=== PATIENT | male | born 1965 | race Caucasian/White ===

== ENCOUNTER 2019-06-03 19:54 | Inpatient (IN) | payer BC ==
[~2019-06-03] VITALS: Ht 172.7 cm; Wt 96.5 kg
[2019-06-03 20:25] LABS: BASO # 0.1 x10^3/uL (0.0-0.2); BASO % 0 % (0-3); EOS % 0 % (0-3); HEMATOCRIT 52.4 % (39.0-53.0); HEMOGLOBIN 17.9 g/dL (13.0-17.5); LYMPH # 1.7 x10^3/uL (1.0-4.8); LYMPH % 8 % (24-48); MEAN CORPUSCULAR HEMOGLOBIN 31 pg (25-35); MEAN CORPUSCULAR HGB CONC 34 g/dL (31-37); MEAN CORPUSCULAR VOLUME 91 fL (79-100); MONO # 1.2 x10^3/uL (0.0-1.1); MONO % 6 % (0-9); NEUT # 18.2 x10^3/uL (1.8-7.7); NEUT % 86 % (31-73); PLATELET COUNT 296 x10^3/uL (140-400); RED BLOOD COUNT 5.74 x10^6/uL (4.30-5.70); RED CELL DISTRIBUTION WIDTH 13.9 % (11.5-14.5); WHITE BLOOD COUNT 21.1 x10^3/uL (4.0-11.0)
[2019-06-03] MEDS ORDERED: ONDANSETRON PF 4 MG/2 ML VIAL. IVP ONE (20:30)
[2019-06-03 20:40] LABS: PROTHROMBIN TIME PATIENT 12.5 SEC (11.7-14.0)
--- NOTE | 2019-06-03 20:43 | PHYS DOC ---
Past Medical History Past Medical History: Hypertension, Hypothyroid Past Surgical History: Cholecystectomy, Other Additional Past Surgical Histo: CYST REMOVAL ON NECK Smoking Status: Current Every Day Smoker Alcohol Use: Occasionally Adult General Chief Complaint Chief Complaint: CHEST PAIN HPI HPI Patient is a 54 year old male who comes in tonight to ER brought in by private vehicle by his girlfriend. Per pt he has had epigastric discomfort all day today and diarrhea. Around 1800 he states he thinks he "blacked out" at his desk at work because he was "awoken" by his coworkers asking if he was okay and they report that his eyes were open but he wasn't responding, he had some drool coming out of his mouth and he was incontinent of urine. Pt reports a headache. They offered to call EMS but pt chose to have his girlfriend come take him to ER so he could get himself cleaned up first. Pt denies any history of seizures or stroke. He has HTN but denies CAD. He does report that on the weekends he drinks alcohol heavily and this last weekend he drank at least half a bottle of bourbon. Pt states he has felt some nause and SOB today but currently in ER he has some mild epigastric discomfort that he describe as "gas" or "crampy" and he has a headache. Pt does report that 2 weeks ago he was diagnosed with influenza but he has mostly recovered from those symptoms. Review of Systems Review of Systems Constitutional: Denies fever or chills Eyes: Denies change in visual acuity, redness, or eye pain HENT: Denies nasal congestion or sore throat Respiratory: Reports SOB-resolved Cardiovascular: Reports epigastric discomfort. GI: Reports epigastric discomfort and nausea. : Denies dysuria or hematuria Musculoskeletal: Denies back pain or joint pain Integument: Denies rash or skin lesions Neurologic: Denies focal weakness or sensory changes. He reports headache and syncope vs seizure. All other systems were reviewed and found to be within normal limits, except as documented in this note. Current Medications Current Medications Current Medications Medications (Trade) Dose Ordered Sig/Urmila Start Time Stop Time Status Last Admin Dose Admin Ceftriaxone Sodium (Rocephin) 1 gm 1X ONCE 06/03/19 21:30 06/03/19 21:31 DC 06/03/19 22:00 1 GM Ondansetron HCl (Zofran) 4 mg 1X ONCE 06/03/19 20:30 06/03/19 20:31 DC 06/03/19 21:22 4 MG Sodium Chloride 1,000 ml @ 1,000 mls/hr 1X ONCE 06/03/19 21:30 06/03/19 22:29 06/03/19 22:01 1,000 MLS/HR Allergies Allergies Allergies Coded Allergies Type Severity Reaction Last Updated Verified No Known Drug Allergies 06/03/19 No Physical Exam Physical Exam Constitutional: Well developed, well nourished, no acute distress, non-toxic appearance. HENT: Normocephalic, atraumatic, bilateral external ears normal, oropharynx moist, no oral exudates, nose normal. Eyes: PERRLA, EOMI, conjunctiva normal, no discharge. Neck: Normal range of motion, no tenderness, supple, no stridor. Cardiovascular:Heart rate regular rhythm, no murmur Lungs & Thorax: Bilateral breath sounds clear to auscultation Abdomen: Bowel sounds normal, soft, no masses, no pulsatile masses. Epigastric region mildly tender with palpation. Skin: Warm, dry, no erythema, no rash. Pallor Back: No tenderness, no CVA tenderness. Extremities: No tenderness, no cyanosis, no clubbing, ROM intact, no edema. Neurologic: Alert and oriented X 3, normal motor function, normal sensory function, no focal deficits noted. Psychologic: Affect normal, judgement normal, mood normal. Current Patient Data Vital Signs Vital Signs Date Time Temp Pulse Resp B/P (MAP) Pulse Ox O2 Delivery O2 Flow Rate FiO2 06/03/19 21:52 107 16 136/75 (95) 95 Room Air 06/03/19 19:57 97.5 97.5 Lab Values Laboratory Tests Test 06/03/19 20:04 06/03/19 20:07 06/03/19 20:50 Lactic Acid Level 4.6 mmol/L (0.4-2.0) *H White Blood Count 21.1 x10^3/uL (4.0-11.0) H Red Blood Count 5.74 x10^6/uL (4.30-5.70) H Hemoglobin 17.9 g/dL (13.0-17.5) H Hematocrit 52.4 % (39.0-53.0) Mean Corpuscular Volume 91 fL (79-100) Mean Corpuscular Hemoglobin 31 pg (25-35) Mean Corpuscular Hemoglobin Concent 34 g/dL (31-37) Red Cell Distribution Width 13.9 % (11.5-14.5) Platelet Count 296 x10^3/uL (140-400) Neutrophils (%) (Auto) 86 % (31-73) H Lymphocytes (%) (Auto) 8 % (24-48) L Monocytes (%) (Auto) 6 % (0-9) Eosinophils (%) (Auto) 0 % (0-3) Basophils (%) (Auto) 0 % (0-3) Neutrophils # (Auto) 18.2 x10^3/uL (1.8-7.7) H Lymphocytes # (Auto) 1.7 x10^3/uL (1.0-4.8) Monocytes # (Auto) 1.2 x10^3/uL (0.0-1.1) H Eosinophils # (Auto) 0.0 x10^3/uL (0.0-0.7) Basophils # (Auto) 0.1 x10^3/uL (0.0-0.2) Segmented Neutrophils % 76 % (35-66) H Band Neutrophils % 9 % (0-9) Lymphocytes % 10 % (24-48) L Monocytes % 5 % (0-10) Toxic Granulation Slight Platelet Estimate Adequate (ADEQUATE) Prothrombin Time 12.5 SEC (11.7-14.0) Prothrombin Time INR 1.0 (0.8-1.1) Activated Partial Thromboplast Time 30 SEC (24-38) Sodium Level 139 mmol/L (136-145) Potassium Level 4.2 mmol/L (3.5-5.1) Chloride Level 102 mmol/L (98-107) Carbon Dioxide Level 26 mmol/L (21-32) Anion Gap 11 (6-14) Blood Urea Nitrogen 14 mg/dL (8-26) Creatinine 1.9 mg/dL (0.7-1.3) H Estimated GFR (Cockcroft-Gault) 37.4 BUN/Creatinine Ratio 7 (6-20) Glucose Level 139 mg/dL (70-99) H Calcium Level 9.5 mg/dL (8.5-10.1) Total Bilirubin 0.8 mg/dL (0.2-1.0) Aspartate Amino Transferase (AST) 19 U/L (15-37) Alanine Aminotransferase (ALT) 28 U/L (16-63) Alkaline Phosphatase 130 U/L (46-116) H Creatine Kinase 111 U/L (39-308) Creatine Kinase MB (Mass) 0.6 ng/mL (0.0-3.6) Creatine Kinase MB Relative Index 0.5 % (0-4) Troponin I Quantitative < 0.017 ng/mL (0.000-0.055) TM-Zox-M-Type Natriuretic Peptide 70 pg/mL (0-124) Total Protein 8.5 g/dL (6.4-8.2) H Albumin 4.3 g/dL (3.4-5.0) Albumin/Globulin Ratio 1.0 (1.0-1.7) Lipase 140 U/L (73-393) Laboratory Tests 06/03/19 20:07 Laboratory Tests 06/03/19 20:50 EKG EKG EKG: rate 103 bpm, tachycardia, no STEMI, reviewed by Dr. Lindo Radiology/Procedures Radiology/Procedures CXR: neg for acute finding Course & Med Decision Making Course & Med Decision Making I suspect that pt had a seizure with his report of what happened today and elevated lactic and WBC. He does have some epigastric pain so will trend his troponin. He has no history of seizures and possibly this is related to heavy alcohol intake over the weekend but unclear. Discussed admission to trend his troponin, as well as watch if his lactic and WBC decrease. Pt was given some IVF and Rocephin just because he met sepsis criteria but have lower suspicion for infection. Pt admitted to Dr Meyers. Pt resting comfortably. Dragon Disclaimer Dragon Disclaimer This electronic medical record was generated, in whole or in part, using a voice recognition dictation system. Departure Departure Impression: Primary Impression: Lactic acid blood increased Additional Impressions: Leukocytosis Epigastric pain Disposition: ADMITTED INPATIENT Admitting Physician: MONICA Condition: STABLE Problem Qualifiers SENG BLEDSOE Jun 03, 2019 20:43
[2019-06-03 20:47] LABS: % BANDS 9 % (0-9); % LYMPHS 10 % (24-48); % MONOS 5 % (0-10); % SEGS 76 % (35-66)
[2019-06-03 20:49] LABS: PLT ESTIMATE ADEQUATE (ADEQUATE); TOXIC GRANULATION SLIGHT
--- NOTE | 2019-06-03 21:03 | RAD ---
EXAM: AP View of the chest DATE: 06/03/2019 8:12 PM INDICATION: Chest pain, shortness of air COMPARISON: No Prior FINDINGS: The heart is not enlarged. Mediastinal and hilar contours are normal. No focal parenchymal airspace opacity. No pleural effusion or pneumothorax. IMPRESSION: 1. No radiographic evidence for acute cardiopulmonary process. Electronically signed by: Dyllan Elliott MD (06/03/2019 9:00 PM) [id number]
[2019-06-03 21:09] LABS: CALCIUM 9.5 mg/dL (8.5-10.1); CREATININE 1.9 mg/dL (0.7-1.3); GFR 37.4; POTASSIUM 4.2 mmol/L (3.5-5.1)
[2019-06-03 21:16] LABS: ALBUMIN 4.3 g/dL (3.4-5.0); TOTAL BILIRUBIN 0.8 mg/dL (0.2-1.0); TOTAL PROTEIN 8.5 g/dL (6.4-8.2)
[2019-06-03] MEDS ORDERED: IV NORMAL SALINE 1000ML BAG 1,000 ML IV ONE (21:30)
[2019-06-03] MEDS ORDERED: cefTRIAXone IV Push 1 GM VIAL. IVP ONE (21:30)
--- NOTE | 2019-06-03 21:50 | RAD ---
EXAM: CT Head without IV contrast CLINICAL HISTORY: Syncope, seizures COMPARISON: None. TECHNIQUE: Routine CT of the head without contrast. Soft tissues and bone windows were reviewed. PQRS compliance statement - One or more of the following individualized dose reduction techniques were utilized for this study: 1. Automated exposure control 2. Adjustment of the mA and/or kV according to patient size 3. Use of iterative reconstruction technique FINDINGS: There is no evidence of hemorrhage, mass or extra-axial fluid collection. Lucency left basal ganglia, likely lacunar infarct or prominent perivascular space. Garcia-white differentiation is maintained with no evidence of edema. There is no mass effect or shift of the intracranial structures. The ventricles, basilar cisterns and cortical sulci are normal in size and configuration for the patients stated age. The cerebellum and brainstem are unremarkable. The calvarium demonstrates no evidence of fracture or focal lesion. Diffuse opacification right maxillary sinus and left maxillary sinus thickening partially profiled. Otherwise paranasal sinuses and mastoid air cells are grossly clear. IMPRESSION: 1. No evidence for acute intracranial process. 2. Maxillary sinus opacification, likely sinusitis. Electronically signed by: Dyllan Elliott MD (06/03/2019 9:46 PM) [id number]
[2019-06-03] MEDS ORDERED: ONDANSETRON PF 4 MG/2 ML VIAL. IV PRN (22:30)
[2019-06-04] VITALS (7 sets, daily range): BP systolic 120–145; BP diastolic 64–93
[2019-06-04 02:55] LABS: BASO % 0 % (0-3); EOS % 0 % (0-3); HEMATOCRIT 44.5 % (39.0-53.0); HEMOGLOBIN 15.1 g/dL (13.0-17.5); LYMPH % 17 % (24-48); MEAN CORPUSCULAR HEMOGLOBIN 31 pg (25-35); MEAN CORPUSCULAR HGB CONC 34 g/dL (31-37); MEAN CORPUSCULAR VOLUME 91 fL (79-100); MONO # 0.5 x10^3/uL (0.0-1.1); MONO % 5 % (0-9); NEUT # 9.3 x10^3/uL (1.8-7.7); NEUT % 78 % (31-73); PLATELET COUNT 218 x10^3/uL (140-400); RED BLOOD COUNT 4.88 x10^6/uL (4.30-5.70); RED CELL DISTRIBUTION WIDTH 13.9 % (11.5-14.5); WHITE BLOOD COUNT 11.9 x10^3/uL (4.0-11.0)
[2019-06-04 03:09] LABS: ALBUMIN 3.5 g/dL (3.4-5.0); CALCIUM 8.4 mg/dL (8.5-10.1); CREATININE 1.7 mg/dL (0.7-1.3); GFR 42.5; POTASSIUM 4.8 mmol/L (3.5-5.1); TOTAL BILIRUBIN 0.4 mg/dL (0.2-1.0); TOTAL PROTEIN 7.1 g/dL (6.4-8.2)
--- NOTE | 2019-06-04 04:26 | EKG ---
[facility] [address] [place] [address] Test Date: 2019-06-03 Test Time: 19:59:38 Pat Name: BENNY CARABALLO Department: Room: Gender: M [employer] Director: : 1965 Requested By: SENG BLEDSOE Order Number: [id number] Reading MD: Measurements Intervals [place] Rate: 103 P: 158 IA: 138 QRS: 125 QRSD: 92 T: 131 QT: 306 QTc: 403 Interpretive Statements SUPRAVENTRICULAR RHYTHM ABNORMAL RIGHT AXIS DEVIATION LEFT POSTERIOR FASCICULAR BLOCK T ABNORMALITY IN HIGH LATERAL LEADS ABNORMAL ECG RI6.01 No previous ECG available for comparison
[2019-06-04] MEDS ORDERED: LEVO175T5 PO (04:58)
[2019-06-04] MEDS ORDERED: LISI1TAB19 PO (04:58)
[2019-06-04] MEDS ORDERED: ACET-1871 PO (09:43)
[2019-06-04] MEDS ORDERED: ACETAMINOPHEN 325 MG TABLET. PO PRN (09:45)
[2019-06-04] MEDS: hydroCHLOROthiazide 12.5 MG CAPSULE PO SCH (10:00)
[2019-06-04] MEDS: LISINOPRIL 20 MG TABLET PO SCH (11:00)
[2019-06-04] MEDS: LEVOTHYROXINE 175 MCG TABLET PO SCH (11:00)
--- NOTE | 2019-06-04 11:46 | SSS ---
ADMIT DATE: 06/04/2019 CHIEF COMPLAINT: Chest pain and possible seizure. HISTORY OF PRESENT ILLNESS: The patient is a pleasant 54-year-old male who was drinking over the weekend and was brought to the ER because of chest pain. His girlfriend brought him in. Apparently at 6:00 last night, he blacked out, but thought it might have been a seizure. Rated his symptoms at 6/10. He has associated weakness. He was admitted overnight for observation. This morning, he is being examined on the medical floor. He wants to go home. We are going to have Neurology look at him before he goes. PAST MEDICAL HISTORY: Probable alcohol issues, hypertension, hypothyroidism, chronic renal insufficiency, cholecystectomy, noncompliance, tobacco abuse. ALLERGIES: None. FAMILY HISTORY: Coronary artery disease. SOCIAL HISTORY: He smokes and drinks. No drugs. MEDICATIONS: Reviewed, please refer to the MRAD. REVIEW OF SYSTEMS: GENERAL: No history of weight change, weakness or fevers. SKIN: No bruising, hair changes or rashes. EYES: No blurred, double or loss of vision. NOSE AND THROAT: No history of nosebleeds, hoarseness or sore throat. HEART: No history of palpitations, chest pain or shortness of breath on exertion. LUNGS: Denies cough, hemoptysis, wheezing or shortness of breath. GASTROINTESTINAL: Denies changes in appetite, nausea, vomiting, diarrhea or constipation. GENITOURINARY: No history of frequency, urgency, hesitancy or nocturia. NEUROLOGIC: Denies history of numbness, tingling, tremor or weakness. PSYCHIATRIC: No history of panic, anxiety or depression. ENDOCRINE: No history of heat or cold intolerance, polyuria or polydipsia. EXTREMITIES: Denies muscle weakness, joint pain, pain on walking or stiffness. PHYSICAL EXAMINATION: VITALS: Within normal limits and are stable. GENERAL: No apparent distress. Alert and oriented. HEENT: Normal cephalic atraumatic, external auditory canals are patent. Eyes: Extraocular muscles are intact, pupils are equally round and reactive to light and accommodation. MUSKULOSKELETAL: Well developed, well nourished, good range of motion. ENDOCRINE: No thyromegaly was palpated. LYMPHATICS: No cervical chain or axillary nodes were noted. HEMATOPOIETIC: No bruising. NECK: Supple, no JVD, no thyromegaly was noted. LUNGS: Clear to auscultation in all lung reynolds without rhonchi or wheezing. HEART: RRR, S1, S2 present. Peripheral pulses intact, no obvious murmurs were noted. ABDOMEN: Soft, nontender. Positive bowel sounds no organomegaly, normal bowel sounds. EXTREMITIES: Without any cyanosis, clubbing, or edema. Pedal pulses intact, Homans sign is negative. NEUROLOGIC: Normal speech, normal tone. A & O x 3, moves all extremities, no obvious focal deficits. PSYCHIATRIC: Normal affect, normal mood. Stable. SKIN: No ulcerations or rashes, good skin turgor, no jaundice. VASCULAR: Good capillary refill, neurovascular bundle appears to be intact. LABORATORY DATA: Troponin is 0. White count was 21 last night, but it went down to 11.9 this morning. ASSESSMENT AND PLAN: Atypical chest pain. The patient looks great for discharge. We will go ahead and have Neurology look at him regarding the possibility of a seizure before he goes. DISPOSITION: Home. ACTIVITY: As tolerated. DIET: Low sodium. MEDICATIONS: Please see MRAD. I did give him a prescription for empiric Augmentin 875 p.o. b.i.d. since he had a slight leukocytosis. TOTAL TIME: 32 minutes. ANITA LARA DO DR: RYNE/albert JOB#: [id number] / [id number]
--- NOTE | 2019-06-04 14:06 | NUR ---
SS following for discharge planning. SS reviewed pt chart. Pt is from home and is currently on room air. Discharge order on the chart for home with self care.
[2019-06-04 14:16] LABS: BARBITURATES NEG (NEG); BENZODIAZEPINES NEG (NEG); CANNABINOIDS NEG (NEG); COCAINE NEG (NEG); METHADONE NEG (NEG); OPIATES NEG (NEG); PHENCYCLIDINE NEG (NEG)
[2019-06-04 14:21] LABS: AMPHETAMINE/METHAMPHETAMINE NEG (NEG)
[2019-06-04] MEDS ORDERED: LOPERAMIDE 2 MG CAPSULE PO PRN (15:00)
--- NOTE | 2019-06-04 16:36 | PDOC2 ---
NEUROLOGY CONSULT Date of Admission Date of Admission DATE: 06/04/19 TIME: 16:16 Reason for Consult Reason for Consult: IMPRESSION: Seizure x 1 on 06/03/19, ETOH related likely. Seizure or seizure like episodes x 5 in the past. Chest pain. Dizziness. Leukocytosis. HTN. Hypothyroidism. AKD. Sinusitis. Alcohol use/abuse. RECOMMENDATIONS/PLAN: Vit B1 100 mg daily. EEG. Lab: see orders. Keppra 500 mg bid after EEG. Brain MRI w/wo contrast plus seizure protocol as out-patient base. Patient education for alcohol abstinence. No driving x 6 months anytime after a seizure or seizure like episode. HISTORY OF THE PRESENT ILLNESS: This is a 54-year-old male who presented to the ER brought by private vehicle by his girlfriend. Per pt he has had epigastric discomfort all day and diarrhea. Around 18:00 he states he thinks he "blacked out" at his desk at work because he was "awoken" by his coworkers asking if he was okay and they report that his eyes were open but he wasn't responding, he had some drool coming out of his mouth and he was incontinent of urine. He states he felt dizziness and sweating before episode. Pt reports a headache. They offered to call EMS but pt chose to have his girlfriend come take him to ER so he could get himself cleaned up first. He said he had about 4-5 similar episodes in the past. He drinks about 350 ml of 80% approved alcohol on Monday and less on Monday for about 20 yea rs, but not drink on weekdays. PAST MEDICAL HISTORY: Hypertension, Hypothyroid. PAST SURGERY HISTORY: Cholecystectomy, CYST REMOVAL ON NECK ALLERGY: NKDA MEDICATIONS: Refer to [facility] HISTORY: Non contributory. SOCIAL HISTORY: Lives at home. Denies illicit drug use. He smokes. He drinks about 350 ml 80% approved alcohol on weekend for about 20 years. Stating no drink on weekdays. REVIEW OF SYSTEMS: Constitutional: Over weight. Head: No recent traumatic brain or head injury. Skin: No edema, or rash. Ear: No infection, tinnitus. Eyes: No vision loss or color blindness. Nose: No bleeding or purulent discharges. Hearing: Mild hearing decrease. Neck: No injury. Cardiac: Chest pain, HTN, HLD. Pulmonary: Smoking. GI: No GI ulcer, GI bleeding. Urinary/genital: No dysuria, incontinence, urinary retention. Endocrinologic: Hypothyroidism, obesity. Skeletomuscular: No muscular atrophy. Neurological: see HP. Psychiatric: Denies drug use/abuse. Otherwise, not [id number] review of systems. PHYSICAL EXAMINATION: General appearance is in subacute distress. HEENT: Normocephalic and nontraumatic. Eyes, nose, ears, and throat are unremarkable. Neck is supple. No lymphadenopathy. No crepitus. Cardiovascular: S1, S2, regular rate and rhythm. Pulmonary: Clear to auscultation bilaterally. Abdomen: Bowel sounds are positive. Extremities: No rash, lesions, or edema. No restriction of range of motion NEUROLOGICAL EXAMINATION: Alert Oriented to time, place and person. PERRL. EOMI. CN: no focal findings. Muscle tone: within normal. Muscle strength: 5 DTR: 2 Plantar reflex: Flexor response bilaterally Gait: not examined in bed. Sensory exam: no abnormal findings. No cerebellar signs elicited. F-T-N test fine. Current Medications Current Medications Current Medications Ondansetron HCl (Zofran) 4 mg 1X ONCE IVP Last administered on 06/03/19at 21:22; Start 06/03/19 at 20:30; Stop 06/03/19 at 20:31; Status DC Ceftriaxone Sodium (Rocephin) 1 gm 1X ONCE IVP Last administered on 06/03/19at 22:00; Start 06/03/19 at 21:30; Stop 06/03/19 at 21:31; Status DC Sodium Chloride 1,000 ml @ 1,000 mls/hr 1X ONCE IV Last administered on 06/03/19at 22:01; Start 06/03/19 at 21:30; Stop 06/03/19 at 22:29; Status DC Ondansetron HCl (Zofran) 4 mg PRN Q8HRS PRN IV NAUSEA/VOMITING; Start 06/03/19 at 22:30; Stop 06/04/19 at 22:29 Lorazepam (Ativan Inj) 1 mg PRN Q4HRS PRN IVP ANXIETY / AGITATION; Start at 23:00 Levothyroxine Sodium (Synthroid) 175 mcg DAILY06 PO ; Start 06/04/19 at 11:00 Lisinopril (Prinivil) 20 mg DAILY PO ; Start 06/04/19 at 11:00 Hydrochlorothiazide (Microzide) 12.5 mg DAILY PO ; Start 06/04/19 at 10:00 Acetaminophen (Tylenol) 650 mg PRN Q6HRS PRN PO HEADACHE; Start 06/04/19 at 09:45 Loperamide HCl (Imodium) 2 mg PRN Q15MIN PRN PO DIARRHEA Last administered on 06/04/19at 14:59; Start 06/04/19 at 15:00 Active Scripts Active Reported Lisinopril-Hctz 20-12.5 Mg Tab (Lisinopril/Hydrochlorothiazide) 1 Each Tablet 1 Tab PO DAILY Levothyroxine Sodium 175 Mcg Tablet 1 Tab PO DAILY Allergies Allergies: Allergies Coded Allergies Type Severity Reaction Last Updated Verified No Known Drug Allergies 06/03/19 No ROS Review of System The patient denies any associated fevers, chills, headache, ear pain, rhinorrhea, sore throat, stiff neck, productive cough, chest pain, shortness of breath, back or flank pain, abdominal pain, nausea, vomiting, diarrhea, constipation, dysuria, rash, numbness, weakness, tingling, incontinence, difficulty ambulating, or diaphoresis. Physical Exam Physical Exam General: Well developed, well nourished, no acute distress, well appearing HEENT: Pupils equally round and reactive to light, EOMI, no discharge, normal conjunctiva Neck: Supple, no nuchal rigidity, no JVD, trachea midline, no tenderness Cardiac: RRR, no murmurs, no gallops, no rubs Chest/Lungs: CTAB, no wheeze, no rhonchi, no crackles Abdomen: soft, non-distended, no guarding, no peritoneal signs, non-tender Back: No tenderness Extremities: no edema, pulses intact, non-tender,capillary refill <3 sec bilateral upper and lower extremities, Neuro: Alert and oriented x 4, no focal deficits, normal speech Vitals Vitals: Vital Signs Date Time Temp Pulse Resp B/P (MAP) Pulse Ox O2 Delivery O2 Flow Rate FiO2 06/04/19 15:00 98.4 94 18 140/85 (103) 97 Room Air 98.4 Labs Labs Laboratory Tests Test 06/03/19 20:04 06/03/19 20:07 06/03/19 20:50 06/03/19 23:55 Lactic Acid Level 4.6 mmol/L (0.4-2.0) 2.0 mmol/L (0.4-2.0) White Blood Count 21.1 x10^3/uL (4.0-11.0) Red Blood Count 5.74 x10^6/uL (4.30-5.70) Hemoglobin 17.9 g/dL (13.0-17.5) Hematocrit 52.4 % (39.0-53.0) Mean Corpuscular Volume 91 fL (79-100) Mean Corpuscular Hemoglobin 31 pg (25-35) Mean Corpuscular Hemoglobin Concent 34 g/dL (31-37) Red Cell Distribution Width 13.9 % (11.5-14.5) Platelet Count 296 x10^3/uL (140-400) Neutrophils (%) (Auto) 86 % (31-73) Lymphocytes (%) (Auto) 8 % (24-48) Monocytes (%) (Auto) 6 % (0-9) Eosinophils (%) (Auto) 0 % (0-3) Basophils (%) (Auto) 0 % (0-3) Neutrophils # (Auto) 18.2 x10^3/uL (1.8-7.7) Lymphocytes # (Auto) 1.7 x10^3/uL (1.0-4.8) Monocytes # (Auto) 1.2 x10^3/uL (0.0-1.1) Eosinophils # (Auto) 0.0 x10^3/uL (0.0-0.7) Basophils # (Auto) 0.1 x10^3/uL (0.0-0.2) Segmented Neutrophils % 76 % (35-66) Band Neutrophils % 9 % (0-9) Lymphocytes % 10 % (24-48) Monocytes % 5 % (0-10) Toxic Granulation Slight Platelet Estimate Adequate (ADEQUATE) Prothrombin Time 12.5 SEC (11.7-14.0) Prothromb Time International Ratio 1.0 (0.8-1.1) Activated Partial Thromboplast Time 30 SEC (24-38) Sodium Level 139 mmol/L (136-145) Potassium Level 4.2 mmol/L (3.5-5.1) Chloride Level 102 mmol/L (98-107) Carbon Dioxide Level 26 mmol/L (21-32) Anion Gap 11 (6-14) Blood Urea Nitrogen 14 mg/dL (8-26) Creatinine 1.9 mg/dL (0.7-1.3) Estimated GFR (Cockcroft-Gault) 37.4 BUN/Creatinine Ratio 7 (6-20) Glucose Level 139 mg/dL (70-99) Calcium Level 9.5 mg/dL (8.5-10.1) Total Bilirubin 0.8 mg/dL (0.2-1.0) Aspartate Amino Transf (AST/SGOT) 19 U/L (15-37) Alanine Aminotransferase (ALT/SGPT) 28 U/L (16-63) Alkaline Phosphatase 130 U/L (46-116) Creatine Kinase 111 U/L (39-308) Creatine Kinase MB (Mass) 0.6 ng/mL (0.0-3.6) Creatine Kinase MB Relative Index 0.5 % (0-4) Troponin I Quantitative < 0.017 ng/mL (0.000-0.055) YO-Gky-H-Type Natriuretic Peptide 70 pg/mL (0-124) Total Protein 8.5 g/dL (6.4-8.2) Albumin 4.3 g/dL (3.4-5.0) Albumin/Globulin Ratio 1.0 (1.0-1.7) Lipase 140 U/L (73-393) Test 06/04/19 01:22 06/04/19 13:50 White Blood Count 11.9 x10^3/uL (4.0-11.0) Red Blood Count 4.88 x10^6/uL (4.30-5.70) Hemoglobin 15.1 g/dL (13.0-17.5) Hematocrit 44.5 % (39.0-53.0) Mean Corpuscular Volume 91 fL (79-100) Mean Corpuscular Hemoglobin 31 pg (25-35) Mean Corpuscular Hemoglobin Concent 34 g/dL (31-37) Red Cell Distribution Width 13.9 % (11.5-14.5) Platelet Count 218 x10^3/uL (140-400) Neutrophils (%) (Auto) 78 % (31-73) Lymphocytes (%) (Auto) 17 % (24-48) Monocytes (%) (Auto) 5 % (0-9) Eosinophils (%) (Auto) 0 % (0-3) Basophils (%) (Auto) 0 % (0-3) Neutrophils # (Auto) 9.3 x10^3/uL (1.8-7.7) Lymphocytes # (Auto) 2.0 x10^3/uL (1.0-4.8) Monocytes # (Auto) 0.5 x10^3/uL (0.0-1.1) Eosinophils # (Auto) 0.0 x10^3/uL (0.0-0.7) Basophils # (Auto) 0.0 x10^3/uL (0.0-0.2) Sodium Level 140 mmol/L (136-145) Potassium Level 4.8 mmol/L (3.5-5.1) Chloride Level 107 mmol/L (98-107) Carbon Dioxide Level 22 mmol/L (21-32) Anion Gap 11 (6-14) Blood Urea Nitrogen 16 mg/dL (8-26) Creatinine 1.7 mg/dL (0.7-1.3) Estimated GFR (Cockcroft-Gault) 42.5 BUN/Creatinine Ratio 9 (6-20) Glucose Level 115 mg/dL (70-99) Calcium Level 8.4 mg/dL (8.5-10.1) Total Bilirubin 0.4 mg/dL (0.2-1.0) Aspartate Amino Transf (AST/SGOT) 16 U/L (15-37) Alanine Aminotransferase (ALT/SGPT) 25 U/L (16-63) Alkaline Phosphatase 106 U/L (46-116) Troponin I Quantitative < 0.017 ng/mL (0.000-0.055) Total Protein 7.1 g/dL (6.4-8.2) Albumin 3.5 g/dL (3.4-5.0) Albumin/Globulin Ratio 1.0 (1.0-1.7) Vitamin B12 Level 306 pg/mL (247-911) Thyroid Stimulating Hormone (TSH) 2.839 uIU/mL (0.358-3.74) Urine Opiates Screen Neg (NEG) Urine Methadone Screen Neg (NEG) Urine Barbiturates Neg (NEG) Urine Phencyclidine Screen Neg (NEG) Urine Amphetamine/Methamphetamine Neg (NEG) Urine Benzodiazepines Screen Neg (NEG) Urine Cocaine Screen Neg (NEG) Urine Cannabinoids Screen Neg (NEG) Urine Ethyl Alcohol Neg (NEG) Laboratory Tests Test 06/03/19 20:04 06/03/19 20:07 06/03/19 20:50 06/03/19 23:55 Lactic Acid Level 4.6 mmol/L (0.4-2.0) 2.0 mmol/L (0.4-2.0) White Blood Count 21.1 x10^3/uL (4.0-11.0) Red Blood Count 5.74 x10^6/uL (4.30-5.70) Hemoglobin 17.9 g/dL (13.0-17.5) Hematocrit 52.4 % (39.0-53.0) Mean Corpuscular Volume 91 fL (79-100) Mean Corpuscular Hemoglobin 31 pg (25-35) Mean Corpuscular Hemoglobin Concent 34 g/dL (31-37) Red Cell Distribution Width 13.9 % (11.5-14.5) Platelet Count 296 x10^3/uL (140-400) Neutrophils (%) (Auto) 86 % (31-73) Lymphocytes (%) (Auto) 8 % (24-48) Monocytes (%) (Auto) 6 % (0-9) Eosinophils (%) (Auto) 0 % (0-3) Basophils (%) (Auto) 0 % (0-3) Neutrophils # (Auto) 18.2 x10^3/uL (1.8-7.7) Lymphocytes # (Auto) 1.7 x10^3/uL (1.0-4.8) Monocytes # (Auto) 1.2 x10^3/uL (0.0-1.1) Eosinophils # (Auto) 0.0 x10^3/uL (0.0-0.7) Basophils # (Auto) 0.1 x10^3/uL (0.0-0.2) Segmented Neutrophils % 76 % (35-66) Band Neutrophils % 9 % (0-9) Lymphocytes % 10 % (24-48) Monocytes % 5 % (0-10) Toxic Granulation Slight Platelet Estimate Adequate (ADEQUATE) Prothrombin Time 12.5 SEC (11.7-14.0) Prothromb Time International Ratio 1.0 (0.8-1.1) Activated Partial Thromboplast Time 30 SEC (24-38) Sodium Level 139 mmol/L (136-145) Potassium Level 4.2 mmol/L (3.5-5.1) Chloride Level 102 mmol/L (98-107) Carbon Dioxide Level 26 mmol/L (21-32) Anion Gap 11 (6-14) Blood Urea Nitrogen 14 mg/dL (8-26) Creatinine 1.9 mg/dL (0.7-1.3) Estimated GFR (Cockcroft-Gault) 37.4 BUN/Creatinine Ratio 7 (6-20) Glucose Level 139 mg/dL (70-99) Calcium Level 9.5 mg/dL (8.5-10.1) Total Bilirubin 0.8 mg/dL (0.2-1.0) Aspartate Amino Transf (AST/SGOT) 19 U/L (15-37) Alanine Aminotransferase (ALT/SGPT) 28 U/L (16-63) Alkaline Phosphatase 130 U/L (46-116) Creatine Kinase 111 U/L (39-308) Creatine Kinase MB (Mass) 0.6 ng/mL (0.0-3.6) Creatine Kinase MB Relative Index 0.5 % (0-4) Troponin I Quantitative < 0.017 ng/mL (0.000-0.055) EU-Ofv-G-Type Natriuretic Peptide 70 pg/mL (0-124) Total Protein 8.5 g/dL (6.4-8.2) Albumin 4.3 g/dL (3.4-5.0) Albumin/Globulin Ratio 1.0 (1.0-1.7) Lipase 140 U/L (73-393) Test 06/04/19 01:22 06/04/19 13:50 White Blood Count 11.9 x10^3/uL (4.0-11.0) Red Blood Count 4.88 x10^6/uL (4.30-5.70) Hemoglobin 15.1 g/dL (13.0-17.5) Hematocrit 44.5 % (39.0-53.0) Mean Corpuscular Volume 91 fL (79-100) Mean Corpuscular Hemoglobin 31 pg (25-35) Mean Corpuscular Hemoglobin Concent 34 g/dL (31-37) Red Cell Distribution Width 13.9 % (11.5-14.5) Platelet Count 218 x10^3/uL (140-400) Neutrophils (%) (Auto) 78 % (31-73) Lymphocytes (%) (Auto) 17 % (24-48) Monocytes (%) (Auto) 5 % (0-9) Eosinophils (%) (Auto) 0 % (0-3) Basophils (%) (Auto) 0 % (0-3) Neutrophils # (Auto) 9.3 x10^3/uL (1.8-7.7) Lymphocytes # (Auto) 2.0 x10^3/uL (1.0-4.8) Monocytes # (Auto) 0.5 x10^3/uL (0.0-1.1) Eosinophils # (Auto) 0.0 x10^3/uL (0.0-0.7) Basophils # (Auto) 0.0 x10^3/uL (0.0-0.2) Sodium Level 140 mmol/L (136-145) Potassium Level 4.8 mmol/L (3.5-5.1) Chloride Level 107 mmol/L (98-107) Carbon Dioxide Level 22 mmol/L (21-32) Anion Gap 11 (6-14) Blood Urea Nitrogen 16 mg/dL (8-26) Creatinine 1.7 mg/dL (0.7-1.3) Estimated GFR (Cockcroft-Gault) 42.5 BUN/Creatinine Ratio 9 (6-20) Glucose Level 115 mg/dL (70-99) Calcium Level 8.4 mg/dL (8.5-10.1) Total Bilirubin 0.4 mg/dL (0.2-1.0) Aspartate Amino Transf (AST/SGOT) 16 U/L (15-37) Alanine Aminotransferase (ALT/SGPT) 25 U/L (16-63) Alkaline Phosphatase 106 U/L (46-116) Troponin I Quantitative < 0.017 ng/mL (0.000-0.055) Total Protein 7.1 g/dL (6.4-8.2) Albumin 3.5 g/dL (3.4-5.0) Albumin/Globulin Ratio 1.0 (1.0-1.7) Vitamin B12 Level 306 pg/mL (247-911) Thyroid Stimulating Hormone (TSH) 2.839 uIU/mL (0.358-3.74) Urine Opiates Screen Neg (NEG) Urine Methadone Screen Neg (NEG) Urine Barbiturates Neg (NEG) Urine Phencyclidine Screen Neg (NEG) Urine Amphetamine/Methamphetamine Neg (NEG) Urine Benzodiazepines Screen Neg (NEG) Urine Cocaine Screen Neg (NEG) Urine Cannabinoids Screen Neg (NEG) Urine Ethyl Alcohol Neg (NEG) FRACISCO CHAVARRIA MD Jun 04, 2019 16:36
[2019-06-04] MEDS: THIAMINE 100 MG TABLET. PO SCH (18:12)
[2019-06-05] MEDS: LEVOTHYROXINE 175 MCG TABLET PO SCH (04:07)
[2019-06-05 07:00] VITALS: BP 144/80
[2019-06-05] MEDS ORDERED: NICOTINE 21MG PATCH. TD PRN (08:00)
[2019-06-05] MEDS: hydroCHLOROthiazide 12.5 MG CAPSULE PO SCH (09:00)
[2019-06-05] MEDS: LISINOPRIL 20 MG TABLET PO SCH (09:00)
[2019-06-05 11:00] VITALS: BP 144/92
[2019-06-05] MEDS ORDERED: NICOTINE POLACRILEX 2MG GUM PACKAGE of 12. BC PRN (11:00)
[2019-06-05] MEDS: THIAMINE 100 MG TABLET. PO SCH (11:21)
--- NOTE | 2019-06-05 12:54 | EEG ---
DATE OF SERVICE: 06/05/2019 EEG NUMBER: [id number]. OBJECTIVE: This is a 54-year-old male patient with a history of seizure on 06/03/2019. He had history of seizure or seizure-like episodes in the past. EEG was requested to evaluate seizure activity. METHODS: Twenty electrodes were applied according to the international 10-20 electrode placement system. EKG monitoring, hyperventilation, intermittent photic stimulation, monopolar and bipolar montages are routinely utilized. The record was obtained on a digital system with video monitoring. FINDINGS: 1. Background: The patient was recorded in the awake and drowsy states. No sleep state was recorded. The overall background amplitude is 5-15 microvolts. A posterior dominant rhythm of 8 Hz is observed. 2. Abnormalities: No specific epileptiform discharge or electrographic seizure is seen. No focal or diffuse slowing. 3. Activation: Hyperventilation was performed with good efforts and normal response. Intermittent photic stimulation was performed with photic driving. No specific epileptiform discharge or electrographic seizure induced by hyperventilation or intermittent photic stimulation. IMPRESSION: This EEG is a normal study for the awake and drowsy states. No sleep state was recorded. No focal, lateralizing, specific epileptiform discharge or electrographic seizure is seen. FRACISCO CHAVARRIA MD DR: LENO/albert JOB#: [id number] / [id number]
--- NOTE | 2019-06-05 14:51 | PDOC ---
PROGRESS NOTES Assessment Assessment Seizure x 1 on 06/03/19, ETOH related likely. Seizure or seizure like episodes x 5 in the past. Chest pain. Dizziness. Leukocytosis. HTN. Hypothyroidism. AKD. Sinusitis. Alcohol use/abuse. RECOMMENDATIONS/PLAN: Vit B1 100 mg daily. Keppra 500 mg bid for 1-3 months, then reassess. Suggest brain MRI w/wo contrast plus seizure protocol as out-patient base. Patient education for alcohol abstinence. Patient education for seizure precaution. No driving x 6 months anytime after a seizure or seizure like episode, and he fully understood. EEG on 06/05/19: WNL. No epileptiform discharges or electrographic seizures. HISTORY OF THE PRESENT ILLNESS: This is a 54-year-old male who presented to the ER brought by private vehicle by his girlfriend. Per pt he has had epigastric discomfort all day and diarrhea. Around 18:00 he states he thinks he "blacked out" at his desk at work because he was "awoken" by his coworkers asking if he was okay and they report that his eyes were open but he wasn't responding, he had some drool coming out of his mouth and he was incontinent of urine. He states he felt dizziness and sweating before episode. Pt reports a headache. They offered to call EMS but pt chose to have his girlfriend come take him to ER so he could get himself cleaned up first. He said he had about 4-5 similar episodes in the past. He drinks about 350 ml of 80% approved alcohol on Monday and less on Monday for about 20 years, but not drink on weekdays. 06/05/19: No seizure or seizure like episodes since in the hospital. PAST MEDICAL HISTORY: Hypertension, Hypothyroid. PAST SURGERY HISTORY: Cholecystectomy, CYST REMOVAL ON NECK ALLERGY: NKDA MEDICATIONS: Refer to [facility] HISTORY: Non contributory. SOCIAL HISTORY: Lives at home. Denies illicit drug use. He smokes. He drinks about 350 ml 80% approved alcohol on weekend for about 20 years. Stating no drink on weekdays. REVIEW OF SYSTEMS: Constitutional: Over weight. Head: No recent traumatic brain or head injury. Skin: No edema, or rash. Ear: No infection, tinnitus. Eyes: No vision loss or color blindness. Nose: No bleeding or purulent discharges. Hearing: Mild hearing decrease. Neck: No injury. Cardiac: Chest pain, HTN, HLD. Pulmonary: Smoking. GI: No GI ulcer, GI bleeding. Urinary/genital: No dysuria, incontinence, urinary retention. Endocrinologic: Hypothyroidism, obesity. Skeletomuscular: No muscular atrophy. Neurological: see HP. Psychiatric: Denies drug use/abuse. Otherwise, not [id number] review of systems. PHYSICAL EXAMINATION: General appearance is in no acute distress. HEENT: Normocephalic and nontraumatic. Eyes, nose, ears, and throat are unremarkable. Neck is supple. No lymphadenopathy. No crepitus. Cardiovascular: S1, S2, regular rate and rhythm. Pulmonary: Clear to auscultation bilaterally. Abdomen: Bowel sounds are positive. Extremities: No rash, lesions, or edema. No restriction of range of motion NEUROLOGICAL EXAMINATION: Alert Oriented to time, place and person. PERRL. EOMI. CN: no focal findings. Muscle tone: within normal. Muscle strength: 5 DTR: 2 Plantar reflex: Flexor response bilaterally Gait: not examined in bed. Sensory exam: no abnormal findings. No cerebellar signs elicited. F-T-N test fine. Objective Objective Vital Signs Date Time Temp Pulse Resp B/P (MAP) Pulse Ox O2 Delivery O2 Flow Rate FiO2 06/05/19 11:00 97.5 89 18 144/92 (109) 95 Room Air 97.5 Intake and Output 06/05/19 07:00 Intake Total 750 ml Balance 750 ml Intake Oral 750 ml Vitals Signs Vitals VS - Last 72 Hours, by Label Date Time Temp Pulse Resp B/P (MAP) Pulse Ox O2 Delivery O2 Flow Rate FiO2 06/05/19 11:00 97.5 89 18 144/92 (109) 95 Room Air 97.5 06/05/19 08:00 Room Air 06/05/19 07:00 98.0 77 18 144/80 (101) 98 Nasal Cannula 98.0 06/05/19 03:00 79 06/04/19 22:45 98.1 80 18 143/93 (110) 97 Room Air 98.1 06/04/19 20:00 Room Air 06/04/19 19:50 98.2 87 20 144/92 (109) 96 Room Air 98.2 06/04/19 15:00 98.4 94 18 140/85 (103) 97 Room Air 98.4 06/04/19 11:00 98.2 89 18 145/83 (103) 95 Room Air 98.2 06/04/19 08:00 Room Air 06/04/19 07:00 98.3 84 18 136/70 (92) 94 Room Air 98.3 Medication Medications Current Medications Loperamide HCl (Imodium) 2 mg PRN Q15MIN PRN PO DIARRHEA Last administered on 06/04/19at 14:59; Start 06/04/19 at 15:00 Nicotine (Nicoderm Cq 21mg) 1 patch PRN DAILY PRN TD SMOKING CESSATION; Start 06/05/19 at 08:00 Nicotine Polacrilex (Nicorette Gum) 1 each PRN Q1HR PRN BC SMOKING CESSATION; Start 06/05/19 at 11:00 Thiamine Mononitrate (Vitamin B-1) 100 mg DAILY PO Last administered on 06/05/19at 11:21; Start 06/04/19 at 18:00 Comment Review of Relevant I have reviewed the following items andrea (where applicable) has been applied. FRACISCO CHAVARRIA MD Jun 05, 2019 14:51
[2019-06-05 15:00] VITALS: BP 152/92
[2019-06-05] MEDS ORDERED: LEVE500T56 PO (15:11)
--- NOTE | 2019-06-05 16:14 | NUR ---
Discharge Note: BENNY CARABALLO [address] [place] [address] Discharge instructions and discharge home medications reviewed with Patient and a copy given. All questions have been answered and understanding verbalized. The following instructions and handouts were given: seizures Discontinued IV line Patient discharged to home with self care via personal vehicle
--- NOTE | 2019-06-06 16:03 | DS ---
DATE OF DISCHARGE: 06/05/2019 ADMISSION DIAGNOSES: Lactic acidosis, leukocytosis, possible seizure. DISCHARGE DIAGNOSES: Resolving seizure activity, chest pain, dizziness, hypertension, hypothyroidism, chronic sinusitis, alcohol abuse. HOSPITAL COURSE: The patient is a pleasant middle-aged male, who had been drinking and had mental status change or some concern he could have had a seizure. He also had abdominal discomfort and some diarrhea, was noted to have a leukocytosis. We admitted the patient and observed him for a day or two. He returned to his baseline, but we were still concerned he may have had a seizure, so we consulted Neurology. Dr. Orosco feels like he probably did have a seizure related to alcohol. Yesterday, I saw him and examined him, he was at his baseline. We discharged to home. DISPOSITION: Home. ACTIVITY: As tolerated. DIET: Low sodium. MEDICATIONS: Please see MRAD. TOTAL TIME: 32 minutes. ANITA LARA DO DR: RYNE/albert JOB#: [id number] / [id number]
== END 2019-06-05 16:51 | disposition home or self-care (01) | DRG 101 ==
LOC: ER 19:54 → ED HOLD 22:10 → 2 SOUTH 06-04 00:48
PROVIDERS: ADMIT Internal Medicine; ATTEND Internal Medicine
DX: R56.9 Unspecified convulsions (principal); E87.2 Acidosis; R07.89 Other chest pain; E03.9 Hypothyroidism, unspecified; F10.10 Alcohol abuse, uncomplicated; F17.200 Nicotine dependence, unspecified, uncomplicated; I12.9 Hypertensive chronic kidney disease with stage 1 through stage 4 chronic kidney disease, or unspecified chronic kidney disease; J32.9 Chronic sinusitis, unspecified; N18.9 Chronic kidney disease, unspecified; R32 Unspecified urinary incontinence; Z79.899 Other long term (current) drug therapy; Z82.49 Family history of ischemic heart disease and other diseases of the circulatory system; Z91.19 Patient's noncompliance with other medical treatment and regimen; Z90.49 Acquired absence of other specified parts of digestive tract
CPT/HCPCS: 36415; 70450; 71045; 80053; 80307; 82553; 82607; 83605; 83690; 83880; 84443; 84484; 85007; 85025; 85610; 85730; 87493; 93005; 95816; 96361; 96374; 96375; J0696; J2405; J7030; 99285-25; G0378